=== PATIENT | female | born 1980 | race Caucasian/White ===

== ENCOUNTER 2016-09-03 17:09 | Emergency (ER) | payer SELFPAY ==
[~2016-09-03] VITALS: Ht 165.1 cm; Wt 77.2 kg
[~2016-09-03 17:09] MED LIST: FIORIC PO; MEDR4PAK3 PO; PERC5TAB12 PO
[2016-09-03 17:22] VITALS: BP 117/83; PULSE 116; RESP 16; TEMP 98.5; O2SAT 99
[2016-09-03] MEDS ORDERED: NORT10SO PO (17:31)
[2016-09-03] MEDS ORDERED: NORT10CA PO (17:31)
--- NOTE | 2016-09-03 17:46 | PD ---
HPI . right knee pain since yesterday. Chief Complaint: Injury Time Seen by Provider: 17:41 Travel History International Travel<30 days: No Contact w/Intl Traveler<30days: No Traveled to known affect area: No History of Present Illness HPI 36-year-old female with history of Fe def anemia, migraines, anxiety and tachycardia here with complaints of right knee pain. Patient was jumping on a trampoline yesterday with her children when she heard a popping sensation in her right knee. Really came down and has been having difficulty bearing any weight. She also reports pain extending the knee, but is able to bend freely. There is some swelling at the knee. She tells me the pain is 8 out of 10. At the time of examination she denies any other symptoms. no chance of : started menses and tubal ligation PFSH Past Medical History Anemia: Yes Blood Disorders: No Heart Rhythm Problems: Yes ("if my heart rate gets too fast I pass out") Cardiac Catheterization: No Cardiovascular Problems: Yes (HOLE IN HEART, DOESNT REMEMBER ) High Cholesterol: Yes Diabetes: No Diminished Hearing: No Hypertension: No Neurologic: Yes (benign brain tumor) Reproductive: Yes (PID) Immunizations Current: Yes Migraines: Yes Myocardial Infarction: No Tetanus Vaccination: < 5 Years ?: Not LMP: 09/02/16 : 4 Para: 2 Miscarriage: 1 : 1 Dilation and Curettage (D&C): Yes Tubal Ligation: Yes Past Surgical History Section: Yes Coronary Artery Bypass Graft: No Gynecologic Surgery: Yes (D AND C ) Social History Alcohol Use: No Tobacco Use: No Substance Use: No Allergies-Medications (Allergen,Severity, Reaction): Coded Allergies: Bactrim (Verified Allergy, Severe, 09/03/16) Morphine (Verified Allergy, Severe, 09/03/16) Penicillin (Verified Allergy, Severe, rash,shortness of breath, 09/03/16) Reported Meds & Prescriptions Reported Meds & Active Scripts Active Reported Nortriptyline Liq (Nortriptyline HCl) 10 mg/5 ml Soln 10 Mg PO HS Review of Systems General / Constitutional: No: Fever Eyes: No: Visual changes HENT: No: Headaches Cardiovascular: No: Chest Pain or Discomfort Respiratory: No: Shortness of Breath Gastrointestinal: No: Abdominal Pain Genitourinary: No: Dysuria Musculoskeletal: Positive: Pain (right knee pain) Skin: No Rash Neurologic: No: Weakness Psychiatric: No: Depression Endocrine: No: Polydipsia Hematologic/Lymphatic: No: Easy Bruising Physical Exam Narrative GENERAL: AAO x 3, no acute distress, Well-nourished, well-developed patient. SKIN: Warm and dry. No visible rashes or bruising. HEAD: Normocephalic and atraumatic. EYES: No scleral icterus. No injection or drainage. ENT: No nasal drainage noted. Mucous membranes pink. Airway patent. NECK: Supple, trachea midline. No JVD. CARDIOVASCULAR: Tachy rate and rhythm without murmurs, gallops, or rubs. RESPIRATORY: Breath sounds equal bilaterally. No accessory muscle use. No rhonchi or rales. GASTROINTESTINAL: Abdomen soft, non-tender, nondistended. EXTREMITIES: No cyanosis. Right knee with mild edema. Pain with medial and lateral movement. No significant joint laxity. BACK: Nontender without obvious deformity. No CVA tenderness. PSYCH: AAO x 3, normal affect. Data Data Last Documented VS Vital Signs Date Time Temp Pulse Resp B/P Pulse Ox O2 Delivery O2 Flow Rate FiO2 09/03/16 17:22 98.5 116 16 117/83 99 Orders Tramadol (Ultram) (09/03/16 18:00) Knee, Complete (4vws) (09/03/16 17:51) MDM Medical Decision Making Medical Screen Exam Complete: Yes Emergency Medical Condition: Yes Medical Record Reviewed: Yes (multiple visits, most recent face pain) Differential Diagnosis knee sprain, ligament tear, less likely knee fracture Narrative Course 36-year-old female with history of migraines, anxiety and tachycardia here with complaints of right knee pain. Patient was jumping on a trampoline yesterday with her children when she heard a popping sensation in her right knee. Really came down and has been having difficulty bearing any weight. She also reports pain extending the knee, but is able to bend freely. There is some swelling at the knee. She tells me the pain is 8 out of 10. At the time of examination she denies any other symptoms. no chance of : started menses and tubal ligation Patient seen and examined. She does have some issues with extending the right knee and point tenderness. Knee x-ray ordered. She'll more than likely need MRI imaging as an outpatient. Tramadol given in ED for pain. discussed normal knee xray will wrap with miroslava bandage and crutches provided to the patient Ibuprofen 800 TID and RICE advised f/u with PCP for further workup and treatment as needed Patient verbalized understanding of instructions, questions were answered, and thanked me for their care. I advised them if their condition worsens, please return to the nearest emergency room for further care. Diagnosis Primary Impression: Right knee sprain Qualified Code: S83.91XA - Sprain of right knee, unspecified ligament, initial encounter Patient Instructions: General Instructions, Knee Sprain (ED) Additional Instructions: Please return to emergency department if your symptoms return or worsen. Follow up with your primary care provider. Take medications as prescribed. Med/Other Pt SpecificInfo: Prescription(s) given Scripts Ibuprofen 800 Mg Los239 Mg PO TID #30 TAB Ref 0 Prov:Annetta Stephens 09/03/16 Disposition: 01 DISCHARGE HOME Condition: Stable Annetta Stephens Sep 03, 2016 17:46
[2016-09-03] MEDS ORDERED: traMADol HCL 50 MG TAB PO ONE (18:00)
--- NOTE | 2016-09-03 19:13 | RADHPO ---
EXAM DATE/TIME: 09/03/2016 18:22 [facility] COMPARISON: No previous studies available for comparison. INDICATIONS : Fall. Right knee pain. MEDICAL HISTORY : None. SURGICAL HISTORY : None. ENCOUNTER: Initial ACUITY: 1 day PAIN SCORE: 6/10 LOCATION: Right lateral FINDINGS: Four view examination of the right knee demonstrates no evidence of fracture or dislocation. Bony mi neralization is normal. The articular surfaces are intact. The suprapatellar soft tissues have a no rmal configuration. CONCLUSION: Unremarkable examination of the right knee. Dustin Shepherd MD on September 03, 2016 at 19:10 Board Certified Radiologist. This report was verified electronically.
[2016-09-03] MEDS ORDERED: IBUP800T23 PO (19:22)
== END 2016-09-03 19:36 | disposition home or self-care (01) ==
LOC: PHEFT 17:09
DX: S83.91XA Sprain of unspecified site of right knee, initial encounter (principal); X58.XXXA Exposure to other specified factors, initial encounter; Y93.44 Activity, trampolining
CPT/HCPCS: 73564; 99283; E0113

== ENCOUNTER 2017-08-26 17:52 | Emergency (ER) | payer SELFPAY ==
[~2017-08-26] VITALS: Ht 165.1 cm; Wt 85.0 kg
[~2017-08-26 17:52] MED LIST changes: -FIORIC PO; +IBUP1TAB7 PO; -MEDR4PAK3 PO; +NORT10SO PO; -PERC5TAB12 PO
[2017-08-26 17:57] VITALS: BP 143/72; PULSE 147; RESP 19; TEMP 98.9; O2SAT 100
[2017-08-26 18:14] VITALS: BP 127/83; PULSE 132; RESP 20; O2SAT 99
[2017-08-26] MEDS ORDERED: SODIUM CHLOR 0.9% 1000 ML INJ 1,000 ML IV ONE ×3 (18:15→20:00)
[2017-08-26] MEDS ORDERED: ONDANSETRON HCL 4 MG/2 ML VIAL IV PUSH ONE (18:15)
[2017-08-26] MEDS ORDERED: KETOROLAC TROMETHAMINE 30 MG/ML (IVP) VIAL IV PUSH ONE (18:15)
--- NOTE | 2017-08-26 18:37 | RADRPT ---
EXAM DATE/TIME: 08/26/2017 18:25 [facility] COMPARISON: CHEST SINGLE AP, August 14, 2015, 15:03. INDICATIONS : Cold and flu symptoms for twenty-four hours. MEDICAL HISTORY : None. SURGICAL HISTORY : None. ENCOUNTER: Initial ACUITY: 1 day PAIN SCORE: 0/10 LOCATION: Bilateral chest FINDINGS: A single view of the chest demonstrates the lungs to be symmetrically aerated without evidence of mas s, infiltrate or effusion. The cardiomediastinal contours are unremarkable. Osseous structures are intact. CONCLUSION: The lungs are clear. Robin Gregory MD on August 26, 2017 at 18:34 Board Certified Radiologist. This report was verified electronically.
--- NOTE | 2017-08-26 18:52 | PD ---
Data Data Last Documented VS Vital Signs Date Time Temp Pulse Resp B/P (MAP) Pulse Ox O2 Delivery O2 Flow Rate FiO2 08/26/17 18:14 132 20 127/83 (98) 99 Room Air 08/26/17 17:57 98.9 Orders Orders Electrocardiogram (08/26/17 18:08) Complete Blood Count With Diff (08/26/17 18:08) Comprehensive Metabolic Panel (08/26/17 18:08) Ckmb (Isoenzyme) Profile (08/26/17 18:08) Troponin I (08/26/17 18:08) Blood Culture (08/26/17 18:08) Lipase (08/26/17 18:08) Magnesium (Mg) (08/26/17 18:08) Thyroid Stimulating Hormone (08/26/17 18:08) Influenzae A/B Antigen (08/26/17 18:08) Chest, Single Ap (08/26/17 18:08) Iv Access Insert/Monitor (08/26/17 18:08) Ecg Monitoring (08/26/17 18:08) Oximetry (08/26/17 18:08) Lactic Acid Sepsis Protocol (08/26/17 18:08) Sodium Chlor 0.9% 1000 Ml Inj (Ns 1000 M (08/26/17 18:15) Ondansetron Inj (Zofran Inj) (08/26/17 18:15) Ketorolac Inj (Toradol Inj) (08/26/17 18:15) Sodium Chlor 0.9% 1000 Ml Inj (Ns 1000 M (08/26/17 18:45) MDM Supervised Visit with LUIZ: Yes Narrative Course The history, exam, and medical decision-making in the associated mid-level provider note were completed with my assistance. I reviewed and agree with the findings presented. I attest that I had a [id number] encounter with the patient on the same day, and personally performed and documented my assessment and findings in the medical record. *My assessment and Findings: 37-year-old woman with chest pain, cough cold symptoms, fevers chills myalgias. Suspect influenza. Heart rate rapid. Possibly some dehydration. Looks overall well. We will check labs, IV fluids, supportive treatment. David Mohamud MD Aug 26, 2017 18:51
--- NOTE | 2017-08-26 19:04 | PD ---
HPI Chief Complaint: Cold / Flu Symptoms Time Seen by Provider: 18:00 Travel History International Travel<30 days: No Contact w/Intl Traveler<30days: No Traveled to known affect area: No History of Present Illness HPI 37-year-old female that presents to the ED for evaluation of cold-like symptoms and chest pressure for the past 2 days. Per patient symptoms started last night. She's been having nausea and vomiting. Chest pressure on the left chest. No history of this in the past. No sick contacts at home. No bowel movement urinary issues. No recent travel. No overt control use. She does have a history of brain tumor since that is per patient and assist that causes some memory issues but otherwise she has no other medical issues. Takes no medications at this time. Allergies to morphine, sulfa and tramadol. Pain per patient is 7 out of 10. Cough is productive. No body aches or fever per patient. She does feel like she has chills and she gets cold and sweaty on and off. No abdominal pain. PFSH Past Medical History Anemia: Yes Blood Disorders: No Heart Rhythm Problems: Yes ("if my heart rate gets too fast I pass out") Cardiac Catheterization: No Cardiovascular Problems: Yes (HOLE IN HEART, DOESNT REMEMBER ) High Cholesterol: Yes Diabetes: No Diminished Hearing: No Hypertension: No Neurologic: Yes (benign brain tumor) Reproductive: Yes (PID) Immunizations Current: Yes Migraines: Yes Myocardial Infarction: No ?: Not LMP: 09/02 : 4 Para: 2 Miscarriage: 1 : 1 Dilation and Curettage (D&C): Yes Tubal Ligation: Yes Past Surgical History Section: Yes Coronary Artery Bypass Graft: No Gynecologic Surgery: Yes (D AND C ) Social History Alcohol Use: No Tobacco Use: No Substance Use: No Allergies-Medications (Allergen,Severity, Reaction): Coded Allergies: morphine (Unverified Allergy, Severe, 08/26/17) penicillin G (Unverified Allergy, Severe, rash,shortness of breath, ) sulfamethoxazole (Unverified Allergy, Severe, 08/26/17) trimethoprim (Unverified Allergy, Severe, 08/26/17) tramadol (Unverified Adverse Reaction, Intermediate, Nausea/Vomiting, 08/26) Reported Meds & Prescriptions Reported Meds & Active Scripts Active Zofran Odt (Ondansetron Odt) 4 Mg Tab 4 Mg SL Q6HR PRN Hydrocodone-Acetamin 5-325 mg (Hydrocodone/Acetaminophen) 5 Mg-325 Mg Tablet 1 Tab PO Q6HR PRN Azithromycin 250 Mg Tab 250 Mg PO DIRECTED Take 2 tabs (500 mg) on day 1 then 1 tab daily x 4 days. Ibuprofen 800 Mg Tab 800 Mg PO TID Reported Nortriptyline Liq (Nortriptyline HCl) 10 mg/5 ml Soln 10 Mg PO HS Review of Systems Except as stated in HPI: all other systems reviewed are Neg Physical Exam Narrative GENERAL: Well-nourished, well-developed patient in no apparent distress. SKIN: Warm and dry. HEAD: Atraumatic. Normocephalic. EYES: Pupils equal and round reactive to light and accommodation. No scleral icterus. No injection or drainage. ENT: No nasal bleeding or discharge. Mucous membranes pink and moist. TMs are clear with no sign of infection or perforation. No mastoid tenderness. Ear canals are intact bilaterally. No lymphadenopathy. Nostril mucosa is red and moist with clear mucus noted. No sinus tenderness to palpation noted. Tonsils are not enlarged or swollen. No ulvua Deviation. Tongue is midline. NECK: Trachea midline. No JVD. No meningeal signs noted CARDIOVASCULAR: Tachycardic rate and rhythm. RESPIRATORY: No accessory muscle use. Clear to auscultation. Breath sounds equal bilaterally. GASTROINTESTINAL: Abdomen soft, non-tender, nondistended. Hepatic and splenic margins not palpable. MUSCULOSKELETAL: Extremities without clubbing, cyanosis, or edema. No obvious deformities. NEUROLOGICAL: Awake and alert. No obvious cranial nerve deficits. Motor grossly within normal limits. Five out of 5 muscle strength in the arms and legs. Normal speech. PSYCHIATRIC: Appropriate mood and affect; insight and judgment normal. Data Data Last Documented VS Vital Signs Date Time Temp Pulse Resp B/P (MAP) Pulse Ox O2 Delivery O2 Flow Rate FiO2 08/26/17 20:30 119 18 127/89 (102) 99 Room Air 08/26/17 17:57 98.9 Orders Orders Electrocardiogram (08/26/17 18:08) Complete Blood Count With Diff (08/26/17 18:08) Comprehensive Metabolic Panel (08/26/17 18:08) Ckmb (Isoenzyme) Profile (08/26/17 18:08) Troponin I (08/26/17 18:08) Blood Culture (08/26/17 18:08) Lipase (08/26/17 18:08) Magnesium (Mg) (08/26/17 18:08) Thyroid Stimulating Hormone (08/26/17 18:08) Influenzae A/B Antigen (08/26/17 18:08) Chest, Single Ap (08/26/17 18:08) Iv Access Insert/Monitor (08/26/17 18:08) Ecg Monitoring (08/26/17 18:08) Oximetry (08/26/17 18:08) Lactic Acid Sepsis Protocol (08/26/17 18:08) Sodium Chlor 0.9% 1000 Ml Inj (Ns 1000 M (08/26/17 18:15) Ondansetron Inj (Zofran Inj) (08/26/17 18:15) Ketorolac Inj (Toradol Inj) (08/26/17 18:15) Sodium Chlor 0.9% 1000 Ml Inj (Ns 1000 M (08/26/17 18:45) Sodium Chlor 0.9% 1000 Ml Inj (Ns 1000 M (08/26/17 20:00) Ct Pulmonary Angiogram (08/26/17 ) Acetamin-Hydrocod 325-5 Mg ([place] 5-325 (08/26/17 20:45) Iohexol 350 Inj (Omnipaque 350 Inj) (08/26/17 21:11) Labs Laboratory Tests Test 08/26/17 18:15 08/26/17 18:30 White Blood Count 6.8 TH/MM3 Red Blood Count 4.72 MIL/MM3 Hemoglobin 11.5 GM/DL Hematocrit 35.3 % Mean Corpuscular Volume 74.8 FL Mean Corpuscular Hemoglobin 24.4 PG Mean Corpuscular Hemoglobin Concent 32.7 % Red Cell Distribution Width 18.4 % Platelet Count 272 TH/MM3 Mean Platelet Volume 8.1 FL Neutrophils (%) (Auto) 78.4 % Lymphocytes (%) (Auto) 11.1 % Monocytes (%) (Auto) 9.0 % Eosinophils (%) (Auto) 0.8 % Basophils (%) (Auto) 0.7 % Neutrophils # (Auto) 5.4 TH/MM3 Lymphocytes # (Auto) 0.8 TH/MM3 Monocytes # (Auto) 0.6 TH/MM3 Eosinophils # (Auto) 0.1 TH/MM3 Basophils # (Auto) 0.0 TH/MM3 CBC Comment DIFF FINAL Differential Comment Blood Urea Nitrogen 12 MG/DL Creatinine 0.72 MG/DL Random Glucose 104 MG/DL Total Protein 7.5 GM/DL Albumin 3.9 GM/DL Calcium Level 9.1 MG/DL Magnesium Level 1.9 MG/DL Alkaline Phosphatase 56 U/L Aspartate Amino Transf (AST/SGOT) 16 U/L Alanine Aminotransferase (ALT/SGPT) 17 U/L Total Bilirubin 0.2 MG/DL Sodium Level 138 MEQ/L Potassium Level 3.4 MEQ/L Chloride Level 106 MEQ/L Carbon Dioxide Level 22.5 MEQ/L Anion Gap 10 MEQ/L Estimat Glomerular Filtration Rate 92 ML/MIN Total Creatine Kinase 80 U/L Troponin I LESS THAN 0.02 NG/ML Lipase 169 U/L Thyroid Stimulating Hormone 3rd Gen 0.379 uIU/ML Lactic Acid Level 1.5 mmol/L MDM Medical Decision Making Medical Screen Exam Complete: Yes Emergency Medical Condition: Yes Medical Record Reviewed: Yes Interpretation(s) CBC & BMP Diagram 08/26/17 18:15 Total Protein 7.5, Albumin 3.9, Calcium Level 9.1, Magnesium Level 1.9, Alkaline Phosphatase 56, Aspartate Amino Transf (AST/SGOT) 16, Alanine Aminotransferase (ALT/SGPT) 17, Total Bilirubin 0.2 Last Impressions Chest X-Ray 08/26/17 1898 Signed Impressions: Service Date/Time: Saturday, August 26, 2017 18:25 - CONCLUSION: The lungs are clear. Robin Gregory MD CT pulmonary angiogram negative troponin and CKMB negative EKG shows sinus rhythm with no sign of acute ischemia but did show sinus tachycardia. Differential Diagnosis Chest pain versus atypical chest pain versus sepsis versus tachycardia versus sinus tachycardia versus arrhythmia versus A. fib versus dehydration versus influenza Narrative Course 37-year-old female that presents to the ED for evaluation of chest pain and like symptoms. Patient was properly examined and was found to have signs and symptoms which appear to be consistent with viral illness and sepsis. Patient is slightly tachycardic in the 130s. My attending Dr. Mohamud was made aware of findings and evaluated the patient and recommends fluids for now. He does not want PE workup at this time. Patient has no risk factors for PE. Labs and imaging showed no sign of acute disease. Patient still tachycardic him after 2 L. 120s and per to 140s when she was initially here. Patient still has some discomfort. My attending Dr. Mohamud had left as his shift was over and I consulted with Dr. Boyle who became my Attending and she recommended CTA as patient continues to be tachycardic but cannot completely rule out PE. CTA was ordered after the patient was console on it. This was negative. Patient was reassured at this time. My attending Dr. Boyle was made aware of findings including that she continues to be slightly tachycardic. This has improved however. From history and physical this appears to be likely viral illness. My attending recommends trial of antibiotics, Zofran and pain medication. Patient was given prescription for azithromycin, Lortab and Zofran. Told to follow closely with PCP. See ED for any worsening symptoms. Diagnosis Primary Impression: Pleurisy Additional Impression: URI (upper respiratory infection) Qualified Codes: J06.9 - Acute upper respiratory infection, unspecified Patient Instructions: General Instructions, Narcotic given in the ED Additional Instructions: Motrin and Tylenol for pain and fever. You can use [id number] antihistamine as well as well as Mucinex as needed for runny nose and congestion. Cough drops for cough as needed. Drink plenty of fluids. Follow-up with PCP. See ED for worsening symptoms. Med/Other Pt SpecificInfo: Prescription(s) given Scripts Ondansetron Odt (Zofran Odt) 4 Mg Tab 4 MG SL Q6HR Y for Nausea/Vomiting, #20 TAB 0 Refills Prov: Mery Boyle MD 08/26/17 Hydrocodone/Acetaminophen (Hydrocodone-Acetamin 5-325 mg) 5 Mg-325 Mg Tablet 1 TAB PO Q6HR Y for PAIN SCALE 1 TO 10, #12 Prov: Mery Boyle MD 08/26/17 Azithromycin (Azithromycin) 250 Mg Tab 250 MG PO DIRECTED for Infection, #6 TAB 0 Refills Take 2 tabs (500 mg) on day 1 then 1 tab daily x 4 days. Prov: Mery Boyle MD 08/26/17 Disposition: 01 DISCHARGE HOME Condition: Stable Jani Desir Aug 26, 2017 19:04
[2017-08-26 19:28] LABS: AUTOMATED NEUTROPHIL # 5.4 TH/MM3 (1.8-7.7); BASOPHIL % 0.7 % (0.0-2.0); EOSINOPHIL # 0.1 TH/MM3 (0-0.4); EOSINOPHIL % 0.8 % (0.0-4.0); HEMATOCRIT 35.3 % (35.0-46.0); HEMOGLOBIN 11.5 GM/DL (11.6-15.3); LYMPH % 11.1 % (9.0-44.0); LYMPHOCYTE # 0.8 TH/MM3 (1.0-4.8); MEAN CELL VOLUME 74.8 FL (80.0-100.0); MEAN CORPUSCULAR HEMOGLOBIN 24.4 PG (27.0-34.0); MEAN CORPUSCULAR HGB CONC 32.7 % (32.0-36.0); MEAN PLATELET VOLUME 8.1 FL (7.0-11.0); MONOCYTE # 0.6 TH/MM3 (0-0.9); NEUT % 78.4 % (16.0-70.0); PLATELET COUNT 272 TH/MM3 (150-450); RED BLOOD COUNT 4.72 MIL/MM3 (4.00-5.30); RED CELL DISTRIBUTION WIDTH 18.4 % (11.6-17.2); WHITE BLOOD COUNT 6.8 TH/MM3 (4.0-11.0)
[2017-08-26 19:50] LABS: ALBUMIN 3.9 GM/DL (3.4-5.0); AST (GOT) 16 U/L (15-37); BICARBONATE 22.5 MEQ/L (21.0-32.0); BLOOD UREA NITROGEN 12 MG/DL (7-18); CALCIUM 9.1 MG/DL (8.5-10.1); CHLORIDE 106 MEQ/L (98-107); CREATININE 0.72 MG/DL (0.50-1.00); GLOMERULAR FILTRATION RATE 92 ML/MIN (>89); GLUCOSE,RANDOM 104 MG/DL (74-106); MAGNESIUM 1.9 MG/DL (1.5-2.5); SODIUM (NA) 138 MEQ/L (136-145)
[2017-08-26 19:51] LABS: ALT (GPT) 17 U/L (10-53)
[2017-08-26 20:00] LABS: ALKALINE PHOSPHATASE 56 U/L (45-117); TOTAL BILIRUBIN ADULT 0.2 MG/DL (0.2-1.0); TOTAL PROTEIN 7.5 GM/DL (6.4-8.2); TROPONIN I LESS THAN 0.02 NG/ML (0.02-0.05)
[2017-08-26 20:30] VITALS: BP 127/89; PULSE 119; RESP 18; O2SAT 99
[2017-08-26] MEDS ORDERED: ACETAMINOPHEN/HYDROcodone 325 MG/5 MG TAB PO ONE (20:45)
[2017-08-26] MEDS ORDERED: IOHEXOL 350 MG/ML 10 ML VIAL (for RAD DIAG) IVCONTRAST ONE (21:11)
--- NOTE | 2017-08-26 21:49 | RADRPT ---
EXAM DATE/TIME: 08/26/2017 21:09 [facility] COMPARISON: No previous studies available for comparison. INDICATIONS : Cold and flu symptoms, chest pain since last night. IV CONTRAST: 75 cc Omnipaque 350 (iohexol) IV RADIATION DOSE: 10.61 CTDIvol (mGy) MEDICAL HISTORY : Cardiovascular disease. SURGICAL HISTORY : Tubal ligation. ENCOUNTER: Initial ACUITY: 1 day PAIN SCALE: 4/10 LOCATION: chest medial TECHNIQUE: Volumetric scanning of the chest was performed using a pulmonary embolism protocol MIP images were re constructed. Using automated exposure control and adjustment of the mA and/or kV according to patien t size, radiation dose was kept as low as reasonably achievable to obtain optimal diagnostic quality images. DICOM format image data is available electronically for review and comparison. Follow-up recommendations for detected pulmonary nodules are based at a minimum on nodule size and pa tient risk factors according to Fleischner Society Guidelines. FINDINGS: PULMONARY ARTERIES: No filling defects are seen in the pulmonary arteries through the segmental level. LUNGS: There is no consolidation or pneumothorax . No concerning pulmonary nodule is visualized. PLEURAE: There is no pleural thickening or pleural effusion. MEDIASTINUM: There is good visualization of the great vessels of the middle mediastinum. No evidence of mediastin al or hilar adenopathy/mass. CONCLUSION: The study is negative for pulmonary embolism. Robin Gregory MD on August 26, 2017 at 21:45 Board Certified Radiologist. This report was verified electronically.
[2017-08-26] MEDS ORDERED: AZIT250T3 PO (21:55)
[2017-08-26] MEDS ORDERED: ZOFR4TAB3 SL (21:55)
[2017-08-26] MEDS ORDERED: HYDR-3516 PO (21:55)
[2017-08-26] MEDS ORDERED: PROM25TA10 PO (22:07)
--- NOTE | 2017-08-27 11:37 | EKG ---
Date Performed: 08/26/2017 Time Performed: 18:07:11 PTAGE: 37 years EKG: SINUS TACHYCARDIA NONSPECIFIC ST & T-WAVE ABNORMALITY ABNORMAL RHYTHM ECG Compared to PREVIOUS TRACING the rate is faster, nonspecific T wave changes are noted in the lateral leads PREVIOUS TRACIN06/05/2007 00.26 DOCTOR: Alberto Prather Interpretating Date/Time 08/27/2017 11:36:39
== END 2017-08-26 22:19 | disposition home or self-care (01) ==
LOC: NEPE 17:52
DX: R09.1 Pleurisy (principal); J06.9 Acute upper respiratory infection, unspecified; R00.0 Tachycardia, unspecified; R94.31 Abnormal electrocardiogram [ECG] [EKG]; R11.2 Nausea with vomiting, unspecified; D64.9 Anemia, unspecified; E78.00 Pure hypercholesterolemia, unspecified; N73.9 Female pelvic inflammatory disease, unspecified; Z79.899 Other long term (current) drug therapy
CPT/HCPCS: 71045; 71275; 80053; 82550; 83605; 83690; 83735; 84443; 84484; 85025; 87040; 87804; 93005; 96361; 96374; 96375; 99285; J1885; J2405; J7030; Q9967